=== PATIENT | female | born 1955 | race Caucasian/White ===

== ENCOUNTER → 2016-08-31 | Outpatient (CLI) | payer OTHER ==
[~2016-08-31] MED LIST: ASPI1POW PO; ASPI325T PO; ASPI81TA2 PO; BENZ200C36 PO; CHOL100018 PO; LACT1CAP14 PO; MULT-1175 PO; OLIV250C PO; OMEG500C7 PO; VITA100T3 PO; [UNRECOGNIZED DRUG - CODE] PO
== END ==
LOC: IMA.MDS 10:35
PROVIDERS: ATTEND Family Medicine
DX: M17.0 Bilateral primary osteoarthritis of knee (principal)

== ENCOUNTER 2016-09-05 12:15 | Emergency (ER) | payer BC, OTHER ==
[~2016-09-05] VITALS: Ht 175.3 cm; Wt 71.8 kg
[~2016-09-05 12:15] MED LIST changes: -ASPI1POW PO; -ASPI81TA2 PO; -CHOL100018 PO; -OLIV250C PO; -[UNRECOGNIZED DRUG - CODE] PO
[2016-09-05 12:17] VITALS: TEMP 97.9; Ht 175.3 cm; Wt 71.8 kg
--- OUTSIDE RECORDS SUMMARY | 2016-09-05 12:19 | XMS REPORT ---
Author Author Yadi Jade [facility] eClinicalWorks Address Unknown Phone Unavailable Care Team Providers Care Human Resources Vice President Name Role Phone Yadi Jade CP Unavailable Allergies, Adverse Reactions, Alerts Substance Reaction Event Type Morphine Sulfate Info Not Available Drug Allergy seasonal allergies Info Not Available Non Drug Allergy Problems Problem Type Condition Code Onset Dates Condition Status Assessment Acute maxillary sinusitis, unspecified J01.00 Active Medications Medication Code System Code Instructions Start Date End Date Status Dosage Benzonatate [facility] [address]-05 not defined Mucinex [facility] [address]-80 600 MG Orally every 12 hrs 1 tablet as needed ProAir HFA [facility] [address]-75 108 (90 Base) MCG/ACT Inhalation every 4-6 hrs Apr 25, 2015 2 puffs as needed Azithromycin [facility] [address]-38 250 MG Orally Once a day 2 tablet on the first day, then 1 tablet daily for 4 days Procedures Procedure Coding System Code Date OFFICE VISIT, EST-LOW COMPLEXITY (15 MIN.) CPT-4 61541 Apr 25, 2015 Vital Signs Date/Time: Apr 25, 2015 Height 70 in Weight 166.4 lbs Temperature 98.0 F Blood Pressure Diastolic 69 mm Hg Blood Pressure Systolic 113 mm Hg Cardiac Monitoring Heart Rate 64 /min BMI 23.87 Index Respiratory Rate 16 /min Results No Known Results Summary Purpose eClinicalWorks Submission
--- OUTSIDE RECORDS SUMMARY | 2016-09-05 12:19 | XMS REPORT ---
Author Author Yadi Jade [facility] eClinicalWorks Address Unknown Phone Unavailable Care Team Providers Care Hydro Excavation Operator Name Role Phone Yadi Jade CP Unavailable Allergies, Adverse Reactions, Alerts Substance Reaction Event Type Morphine Sulfate Info Not Available Drug Allergy seasonal allergies Info Not Available Non Drug Allergy Problems Problem Type Condition ICD-9 Code Onset Dates Condition Status Assessment Other malaise and fatigue 780.79 Active Assessment Fever, unspecified 780.60 Active Assessment Headache 784.0 Active Assessment Chest pain, other 786.59 Active Medications Medication Code System Code Instructions Start Date End Date Status Dosage Cyclobenzaprine HCl [facility] [address]-19 10 MG Orally Once a day Active 1 tablet as needed Procedures Procedure Coding System Code Date COMPREHENSIVE METABOLIC PANEL CPT-4 78231 Jan 15, 2014 SED RATE CPT-4 20732 Jan 15, 2014 COMPLETE CBC W/AUTO DIFF WBC CPT-4 18071 Jan 15, 2014 URINALYSIS, IN HOUSE CPT-4 29966 Jan 15, 2014 TSH CPT-4 15701 Jan 15, 2014 OFFICE VISIT, VISITOR SERVICES ASSOCIATE-MOD. COMPLEXITY (45 MIN.) CPT-4 56448 Jan 15, 2014 Vital Signs Date/Time: Jan 15, 2014 Height 70 inches Weight 163.4 lbs Temperature 98.2 F Blood Pressure Diastolic 60 mm Hg Blood Pressure Systolic 110 mm Hg Cardiac Monitoring Heart Rate 88 Beats per Minute BMI 23.44 Index Respiratory Rate 16 per Minute Results No Known Results Summary Purpose eClinicalWorks Submission
[2016-09-05] MEDS ORDERED: ASPI81TA2 PO (12:46)
[2016-09-05] MEDS ORDERED: OLIV250C PO (12:46)
[2016-09-05] MEDS ORDERED: CHOL100018 PO (12:46)
[2016-09-05] MEDS ORDERED: [UNRECOGNIZED DRUG - CODE] PO (12:46)
[2016-09-05] MEDS ORDERED: ASPI1POW PO (12:47)
--- NOTE | 2016-09-05 12:55 | NUR ---
XRAY PORTABLE XRAY AT BEDSIDE.
[2016-09-05 12:58] LABS: BASOPHILS # (AUTO) 0.1 T/MM3 (0-0.2); BASOPHILS % (AUTO) 1.1 % (0-2); EOSINOPHILS # (AUTO) 0.1 T/MM3 (0-0.5); HCT - HEMATOCRIT 46.7 % (36-46); HGB - HEMOGLOBIN 15.7 GM/DL (12-16); IMMATURE GRANULOCYTE # (AUTO) 0.01 T/MM3 (0.00-0.03); IMMATURE GRANULOCYTE % (AUTO) 0.2 % (0.0-0.5); LYMPHOCYTES # (AUTO) 1.4 T/MM3 (1-4.8); LYMPHOCYTES % (AUTO) 31.4 % (23-45); MEAN CORPUSCULAR HGB 29.2 UUG (26-34); MEAN CORPUSCULAR HGB CONC(MCHC 33.6 GM/DL (31-37); MEAN PLATELET VOLUME 9.8 UM3 (9.4-12.4); MONOCYTES # (AUTO) 0.3 T/MM3 (0-0.8); MONOCYTES % (AUTO) 5.5 % (0-9.0); NEUTROPHILS #(AUTO)-ABSOLUTE 2.7 T/MM3 (1.8-7.7); NEUTROPHILS % (AUTO) 59.8 % (33-66); RED BLOOD COUNT 5.37 M/MM3 (4.00-5.20); WBC - WHITE BLOOD COUNT 4.6 T/MM3 (4.5-11.0)
[2016-09-05 13:02] LABS: ALBUMIN/GLOBULIN RATIO 1.9 RATIO (1.1-2.2); ALKALINE PHOSPHATASE 40 U/L (38-126); ALT (SGPT) 37 U/L (9-52); ANION GAP 15 MEQ/L (5-15); AST (SGOT) 23 U/L (14-36); BUN/CREATININE RATIO 27 RATIO (6-26); CALCIUM 9.9 MG/DL (8.4-10.2); CHLORIDE 108 MEQ/L (98-107); CO2 - CARBON DIOXIDE 22 MEQ/L (22-30); CREATININE 0.9 MG/DL (0.7-1.2); GLOMERULAR FILTRATION RATE 63; GLUCOSE 128 MG/DL (65-110); POTASSIUM 4.1 MEQ/L (3.6-5); SODIUM 145 MEQ/L (134-144); TOTAL PROTEIN 7.7 G/DL (6.3-8.2)
--- NOTE | 2016-09-05 13:08 | DI ---
Indication: ITS.REASON: Centralized chest pain PROCEDURE: CHEST 1 VIEW: Encounter: Initial Comparison: April 19, 2015 FINDINGS: The lungs are clear. There is no abnormal airspace opacity, pleural effusion or pneumothorax identified. The heart size, pulmonary vasculature and mediastinum are within normal limits. No significant skeletal abnormality is seen. IMPRESSION: No acute cardiopulmonary abnormality. .
[2016-09-05] MEDS ORDERED: NORMAL SALINE 1,000 ML IV ONE (13:15)
--- NOTE | 2016-09-05 13:25 | NUR ---
STATUS IVF INITIATED PER ORDERS AT THIS TIME. PT CONTINUES TO DENY CHEST DISCOMFORT. BELONGINGS PLACED IN CART PER PT REQUEST. CALL LIGHT WITHIN REACH, VSS. WILL CONTINUE TO MONITOR.
--- NOTE | 2016-09-05 14:07 | ERPDOC ---
Departure Disposition Decision Date: September 05, 2016 Disposition Decision Time: 15:16 Disposition: 01 DISCHARGED HOME, SELF-CARE Impression Impression Impression: Primary Impression: Chest pain Chest pain type: unspecified Qualified Codes: R07.9 - Chest pain, unspecified Severity: Moderate Condition: Improved Seen By: Physician only Referrals: REBECA MENDOZA MD (Family) ANTONY PATEL MD 2 Days Patient Instructions: Chest Pain (ED) Problems/Meds/Labs Reviewed?: Yes Medications reviewed and manag: Yes Follow up care ordered?: Yes Mental Status: Alert, Oriented HPI - Chest Pain General Chief Complaint: Chest Pain Stated Complaint: CHILLS, LIGHTHEADED, [place], POSS HEART ATTACK Time Seen by Provider: 12:34 Source: patient Exam Limitations: no limitations HPI - Chest Pain Initial Comments 61-year-old female presents to the emergency department with a chief complaint of a single episode of chest pain. At approximately 7:00 this morning the patient noted a 5 minute episode of midsternal chest pressure without radiation. Symptoms resolved on their own. She states the pain was moderate in nature. No radiation. She does not note any exacerbating or remitting factors. Patient has not expressed any discomfort since 7 AM today. She has no other complaints or associated symptoms other than feeling slightly lightheaded. Patient was at home when the incident occurred. Symptoms are resolved. She has no personal history or familial history of coronary artery disease. Patient is not a smoker. She has no risk factors for CAD other than being 61 years of age. Occurred At: home Onset/Timing: other (Resolved. ) Aspirin Treatment Today: unknown Allergies: Coded Allergies: Sulfa (Sulfonamide Antibiotics) (Verified Allergy, Unknown, 09/05/16) codeine (Verified Allergy, Unknown, 09/05/16) morphine (Verified Allergy, Unknown, 09/05/16) "I WAS TOLD NOT TO TAKE IT BECAUSE IT WILL 'KILL ME'" Uncoded Allergies: PAIN KILLERS (Adverse Reaction, Intermediate, DIZZY,UNSTEADINESS, 02/16/11) Past History Past Medical History Pt denies signifigant PMH ENMT: vision problems Neurological: migraines Musculoskeletal: back pain Surgical History General: back Reproductive/: hysterectomy, tubal ligation Family History Family History: Negative Vaccines Hx Influenza Vaccination: Yes (JANUARY 2011) Hx Pneumococcal Vaccination: No Hx Tetanus, Diptheria, Pertuss: Yes (UNSURE) Social History Smoking Status: Never smoker Substance Use Type: does not use Alcohol Intake: none Review of Systems Constitutional Constitutional: DENIES: chills, fever Eyes General: DENIES: erythema, exudate Lids/Accessories: DENIES: erythema, swelling Vision: DENIES: acuity, blurring ENMT Ears: DENIES: drainage, pain Hearing: DENIES: hearing loss Balance: DENIES: ataxia, falling to one side Sinuses: DENIES: congestion, pain Nose: DENIES: foreign body, nosebleeds Mouth/Throat: DENIES: painful swallowing, sore throat Teeth: DENIES: pain Jaw: DENIES: pain Cardiovascular Cardiac: chest pain, DENIES: dyspnea on exertion Rhythm/Rate: DENIES: irregular beat, palpitations Vascular: DENIES: pedal edema, unilateral swelling Pulmonary Respiratory: DENIES: cough, dyspnea, pleuritic chest pain, sputum GI Upper Abdomen: DENIES: nausea, pain, vomiting Lower Abdomen: DENIES: diarrhea, pain General: DENIES: burning, dysuria, frequency, urgency Musculoskeletal General: DENIES: joint pain, pain, tenderness Integumentary Skin: DENIES: itching, rash Neurological General: DENIES: change in strength, headache, numbness, weakness Psychiatric Psychiatric: DENIES: emotional instability, suicidal ideation/attempt Endocrine Endocrine: DENIES: polydipsia, polyphagia Hematologic/Lymphatic Hematologic/Lymphatic: DENIES: frequent nosebleeds, lymphadenopathy Allergic/Immunological Allergic/Immunoligical: DENIES: allergic reactions, hives Physical Exam General General Nourishment: well nourished, well developed, appears stated age, no acute distress, adult General Body Habitus: well groomed Vitals and Pain First Documented Vital Signs Date Time Temp Pulse Resp B/P Pulse Ox O2 Delivery O2 Flow Rate FiO2 09/05/16 12:17 97.9 82 18 139/78 94 Room Air Weight: Kilograms: 71.800 Height (feet): 5 Height (inches): 9.00 Triage Pain Scale: RN VS reviewed by Provider: Yes Normal Exams: Head: Normocephalic w/o trauma Eyes: Pupils are PERRLA w/ EOMI, No scleral icterus, irritation, or foreign bodies noted ENMT: No facial trauma, nasal exudates, pharyngeal erythema, or exudates are noted Dental: No fractured, loose, or missing teeth noted Neck: Full range of motion, without adenopathy, JVD, bruits or thyromegaly Chest/Resp: Clear all arnett, with good airflow, and symmetry bilaterally CV: Regular rate and rhythm, without murmur or gallop, Pulses 2+ all extremities, capillary refill, <2 seconds all ext., no pedal edema noted Abdomen: Bowel sounds positive, soft, non-tender, non-distended, no hepatosplenomegaly, masses or bruits noted Lymphatic: No lymphadenopathy, or lymphedema noted Musculoskeletal: No tenderness, or deformity noted, good range of motion, all extremities Integumentary: No rashes, hives, or bruising noted, hair and nails, without abnormality Neurologic: Patient is alert, and oriented, cranial nerves, motor/sensory/ cerebellar, exams w/o gross deficits, to observation Psychiatric: Patient exhibits, appropriate attention, emotion and affect Differential Diagnoses Considering: Acute AL, Anxiety/Panic, Angina, Costochondritis, Other ( Dehydration) Progress Results/Orders Orders Procedure Category Date Status Time Cbc W/Auto LAB 09/05/16 Complete Diff-Reflex Manual Cmp - Comprehensive LAB 09/05/16 Complete Metabolic Troponin I W LAB 09/05/16 Complete Hemolysis Index EKG EKG 09/05/16 Logged Chest 1 View RAD 09/05/16 Resulted 12:40 Normal Saline (Normal PHA 09/05/16 Complete Saline Iv) 13:15 Troponin I W LAB 09/05/16 Complete Hemolysis Index 14:37 EKG EKG 09/05/16 Logged Lab Results Laboratory Tests Test 09/05/16 12:33 09/05/16 14:47 White Blood Count 4.6T/MM3 Red Blood Count 5.37M/MM3 Hemoglobin 15.7GM/DL Hematocrit 46.7% Mean Corpuscular Volume 87.0UM3 Mean Corpuscular Hemoglobin 29.2UUG Mean Corpuscular Hemoglobin Concent 33.6GM/DL RDW Standard Deviation 42.0FL Platelet Count 311T/MM3 Mean Platelet Volume 9.8UM3 Immature Granulocyte % (Auto) 0.2% Neutrophils (%) (Auto) 59.8% Lymphocytes (%) (Auto) 31.4% Monocytes (%) (Auto) 5.5% Eosinophils (%) (Auto) 2.0% Basophils (%) (Auto) 1.1% Absolute Immature Granulocyte (auto 0.01T/MM3 Absolute Neutrophils (auto) 2.7T/MM3 Absolute Lymphocytes (auto) 1.4T/MM3 Absolute Monocytes (auto) 0.3T/MM3 Absolute Eosinophils (auto) 0.1T/MM3 Absolute Basophils (auto) 0.1T/MM3 Turbidity < 20 Sodium Level 145MEQ/L Potassium Level 4.1MEQ/L Chloride Level 108MEQ/L Carbon Dioxide Level 22MEQ/L Anion Gap 15MEQ/L Blood Urea Nitrogen 24.0MG/DL Creatinine 0.9MG/DL Glomerular Filtration Rate Calc 63 BUN/Creatinine Ratio 27RATIO Glucose Level 128MG/DL Calculated Osmolality 285MOSM/KG Calcium Level 9.9MG/DL Total Bilirubin 0.90MG/DL Icterus Index < 2 Aspartate Amino Transf (AST/SGOT) 23U/L Alanine Aminotransferase (ALT/SGPT) 37U/L Alkaline Phosphatase 40U/L Troponin I < 0.012ng/ml < 0.012ng/ml Total Protein 7.7G/DL Albumin 5.0G/DL Globulin 2.7G/DL Albumin/Globulin Ratio 1.9RATIO Chemistry Specimen Hemolysis 16 < 15 Medications Current ED Medications Sodium Chloride (Normal Saline IV) 1,000 ml @ 999 mls/hr Q1H1M ONCE IV Last administered on 09/05/16t 13:25; Start 09/05/16 at 13:15; Stop 09/05/16 at 14:15 ; Status DC Progress Progress Labs / imaging were discussed in detail with the patient and questions are answered. Patient is low risk for coronary artery disease. She has 2 EKGs without ischemic changes in the emergency department approximately 3 hours apart. She has 2 negative troponins in the emergency department. Patient is over 8 hours from her single episode of chest discomfort. If this was a true cardiac process her troponin should have risen by now or she should have an abnormal EKG which she does not have. Patient has an unremarkable chest x-ray. Patient was discussed and findings reviewed with Dr. Caicedo of cardiology and his recommendations are to have the patient follow-up with him tomorrow in the office. Patient verbalizes agreement and understanding. Patient is discharged home in improved condition. She is in agreement with the current plan of management. Patient is to return to the emergency Department if her condition worsens or changes in any manner. She is to follow up as instructed. She is asymptomatic at the time of discharge home from the ED. EKG EKG : Rate: 60-100 Rhythm: sinus [place]: normal QRS: normal Intervals: normal ST/T: non-specific changes Interpreted by: signing physician EKG Comments EKG #2 - Sinus bradycardia. 57 bpm. No STEMI. Xray Xray : Xray: CXR Portable Interpretation: Normal, Reviewed Written Report SADIQ DENNEY DO September 05, 2016 14:07
--- NOTE | 2016-09-05 14:18 | NUR ---
IVF IVF INFUSED AT THIS TIME
--- NOTE | 2016-09-05 14:20 | NUR ---
ELIMINATION PT AMBULATED TO BR WITHOUT DIFFICULTY
--- NOTE | 2016-09-05 14:47 | NUR ---
LAB AT BEDSIDE FOR REPEAT TROPONIN.
--- NOTE | 2016-09-05 15:22 | NUR ---
PROVIDER DR. DENNEY AT BEDSIDE TO SPEAK WITH PT.
[2016-09-05 15:34] VITALS: BP 127/74; PULSE 58; RESP 14; O2SAT 94
--- NOTE | 2016-09-05 15:34 | NUR ---
DISCHARGE WRITTEN INSTRUCTIONS REVIEWED AND SENT WITH PT. PT VERBALIZES UNDERSTANDING OF DI, DENIES QUESTIONS. REPORTS FEELS BETTER AFTER IVF, DENIES COMPLAINT AT THIS TIME. PT AMBULATES OUT OF ER WITH STEADY GAIT TO LOBBY AT THIS TIME.
== END 2016-09-05 15:34 | disposition home or self-care (01) ==
LOC: ED 12:15
DX: R07.89 Other chest pain (principal); R42 Dizziness and giddiness
CPT/HCPCS: 36415; 71010; 80053; 84484; 85025; 93005; 96360; 99284; J7030